=== PATIENT | female | born 1945 | race Caucasian/White ===

== ENCOUNTER 2017-12-01 07:54 | Day surgery (SDC) | payer MEDICARE, BC ==
[~2017-12-01 07:54] MED LIST: Lactated Ringers 1,000 ML IV SCH; Lidocaine 1% 6 ML ONE; Lidocaine 1%/Sod Bicarbonate in NS 8.4% 1 ML Syringe IDERM PRN; Propofol 200 MG/20 ML SDV ONE; Sodium Chloride 0.9% 10 ML Syringe FLUSH PRN; fentaNYL 100 MCG/2 ML SDV ONE
--- NOTE | 2017-12-01 09:17 | PCM.PREANE ---
Preanesthetic Assessment - Procedure Proposed Procedure: Surveillance colonoscopy - Anesthesia/Transfusion/Family Hx Anesthesia History: Prior Anesthesia Without Reaction Family History of Anesthesia Reaction: No Transfusion History: No Prior Transfusion(s) Type of Transfusion Reactions: Reports: Unknown Additional History: CKD - Review of Systems General: No Symptoms Pulmonary: No Symptoms Cardiovascular: Other (HTN, Left CEA 5 years, ) Gastrointestinal: No Symptoms Other: Reports: None, Diabetes (DM2 glucose 192 at 0820) - Physical Assessment NPO Status Date: 11/30/17 NPO Status Time: 22:00 O2 Sat by Pulse Oximetry: 94 Respiratory Rate: 14 Vital Signs: Last Vital Signs Temp 36.4 C 12/01/17 08:27 Pulse 69 12/01/17 08:27 Resp 14 12/01/17 08:27 BP 161/87 H 12/01/17 08:27 Pulse Ox 94 L 12/01/17 08:27 Height: 1.73 m Weight: 102.512 kg ASA Class: 2 Mental Status: Alert & Oriented x3 Airway Class: Mallampati = 2 Dentition: Reports: Normal Dentition Thyro-Mental Finger Breadths: 3 Mouth Opening Finger Breadths: 3 ROM/Head Extension: Full Lungs: Clear to Auscultation, Normal Respiratory Effort Cardiovascular: Regular Rate, Regular Rhythm - Lab Values: Laboratory Last Values Sodium 139 mEq/L (136-145) 12/01/17 08:20 Potassium 3.5 mEq/L (3.5-5.1) 12/01/17 08:20 Chloride 100 mEq/L (98-107) 12/01/17 08:20 Carbon Dioxide 29 mEq/L (21-32) 12/01/17 08:20 Anion Gap 13.5 (5-15) 12/01/17 08:20 BUN 19 mg/dL (7-18) H 12/01/17 08:20 Creatinine 1.3 mg/dL (0.55-1.02) H 12/01/17 08:20 Est Cr Clr Drug Dosing 40.04 mL/min 12/01/17 08:20 Estimated GFR (MDRD) 40 mL/min (>60) 12/01/17 08:20 BUN/Creatinine Ratio 14.6 (14-18) 12/01/17 08:20 Glucose 192 mg/dL (83-115) H 12/01/17 08:20 Calcium 9.3 mg/dL (8.5-10.1) 12/01/17 08:20 - Allergies Allergies/Adverse Reactions: Allergies Allergy/AdvReac Type Severity Reaction Status Date / Time lisinopril Allergy Cannot Verified 11/30/17 12:36 Remember - Blood Blood Available: No Product(s) Available: None - Anesthesia Plan Pre-Op Medication Ordered: None - Acknowledgements Anesthesia Type Planned: MAC Pt an Appropriate Candidate for the Planned Anesthesia: Yes Alternatives and Risks of Anesthesia Discussed w Pt/Guardian: Yes Pt/Guardian Understands and Agrees with Anesthesia Plan: Yes PreAnesthesia Questionnaire HEENT History: Reports: Cataract, Glaucoma, Impaired Vision Cardiovascular History: Reports: CAD, High Cholesterol, Hypertension, Other ( See Below) Other Cardiovascular History: bruit Respiratory History: Reports: SOB Gastrointestinal History: Reports: Colon Polyp, Diverticulosis Genitourinary History: Reports: Other (See Below) Other Genitourinary History: ckd III TAX ATTORNEY History: Reports: None Musculoskeletal History: Reports: Gout, Other (See Below) Other Musculoskeletal History: knee pain, degenerative joint disease Neurological History: Reports: Headaches, Chronic Psychiatric History: Reports: None Endocrine/Metabolic History: Reports: Diabetes, Type II, Obesity/BMI 30+ Hematologic History: Reports: None Immunologic History: Reports: None Oncologic (Cancer) History: Reports: None Dermatologic History: Reports: None - Past Surgical History Head Surgeries/Procedures: Reports: None HEENT Surgical History: Reports: Cataract Surgery Cardiovascular Surgical History: Reports: Carotid Endarterectomy Other Cardiovascular Surgeries/Procedures: angiogram Respiratory Surgical History: Reports: None GI Surgical History: Reports: Colonoscopy Endocrine Surgical History: Reports: None Neurological Surgical History: Reports: None Other Musculoskeletal Surgeries/Procedures:: bilateral knee replacements with revisions Dermatological Surgical History: Reports: None - SUBSTANCE USE Smoking Status *Q: Never Smoker Recreational Drug Use History: No - HOME MEDS Home Medications: Home Meds Acetaminophen [Tylenol] 650 mg PO Q6HR PRN 09/29/16 [History] Allopurinol [Zyloprim] 1 tab PO BID 09/29/16 [History] Ascorbate Calcium [Vitamin C] 1 tab PO BID 09/29/16 [History] Aspirin 1 tab PO BEDTIME 09/29/16 [History] Ca Carbonate/Vitamin D3/Vit K [Calcium + D Soft Chewable Tab] 1 tab PO DAILY [History] Cinnamon Bark [Cinnamon] 1 cap PO DAILY 09/29/16 [History] Flaxseed Oil [Flax Oil] 1 cap PO BID 09/29/16 [History] Gluc 2KCl/Chondr/Liliam Hy/Hy Ac [Glucosamine & Chondroitin Cap] 1 tab PO BID [History] Losartan [Cozaar] 1 tab PO DAILY 09/29/16 [History] Multivit-Min/FA/Lycopene/Lut [Abc Plus Tablet] 1 tab PO DAILY 09/29/16 [History] Bonaparte-3/DHA/Epa/Fish Oil [Bonaparte 3 500 Softgel] 1 tab PO BID 09/29/16 [History] Pyridoxine HCl 100 mg PO DAILY 09/29/16 [History] Rosuvastatin [Crestor] 5 mg PO BEDTIME 09/29/16 [History] Triamterene/Hydrochlorothiazid [Triamterene-HCTZ 37.5-25 MG] 1 tab PO BID [History] Ubidecarenone [Coq-10] 100 mg PO DAILY 09/29/16 [History] Vit C/Landaverde & Celery Ex/Grp E [Tart Landaverde] 1 cap PO DAILY 09/29/16 [History] Vitamin E 200 unit PO DAILY 09/29/16 [History] Zinc [Zinc Lozenge] 25 mg PO DAILY 09/29/16 [History] amLODIPine [Norvasc] 10 mg PO DAILY 09/29/16 [History] metFORMIN HCl [Metformin HCl] 1,000 mg PO BID 09/29/16 [History] Carvedilol 12.5 mg PO BID 11/30/17 [History] SitaGLIPtin [Januvia] 50 mg PO DAILY 11/30/17 [History] - CURRENT (IN HOUSE) MEDS Current Meds: Current Medications Lactated Ringer's (Ringers, Lactated) 1,000 mls @ 125 mls/hr IV ASDIRECTED SINDI Stop: 12/01/17 23:00 Lidocaine/Sodium Bicarbonate (Buffered Lidocaine 1% In Ns 8.4%) 0.25 ml IDERM ONETIME PRN PRN Reason: Prior to IV Start Stop: 12/01/17 18:00 Sodium Chloride (Saline Flush) 10 ml FLUSH ASDIRECTED PRN PRN Reason: Keep Vein Open Stop: 12/01/17 18:00 Discontinued Medications Fentanyl (Sublimaze) Confirm Administered Dose 100 mcg .ROUTE .STK-MED ONE Stop: 12/01/17 06:25 Lidocaine HCl (Xylocaine-Mpf 1%) Confirm Administered Dose 6 mls @ as directed .ROUTE .STK-MED ONE Stop: 12/01/17 06:25 Propofol (Diprivan 20 Ml) Confirm Administered Dose 200 mg .ROUTE .STK-MED ONE Stop: 12/01/17 06:25
[2017-12-01] MEDS ORDERED: Phenylephrine/Normal Saline 100 MCG/ML 10 ML Syringe ONE (10:09)
[2017-12-01] MEDS ORDERED: Simethicone Drops 40 MG/0.6 ML 30 ML Bottle ONE (10:11)
[2017-12-01] MEDS ORDERED: Lactated Ringers 1,000 ML ONE (10:22)
--- NOTE | 2017-12-01 10:35 | PCM48HPAN ---
Post Anesthesia Note - EVALUATION WITHIN 48HRS OF ANESTHETIC Vital Signs in Normal Range: Yes Patient Participated in Evaluation: Yes Respiratory Function Stable: Yes Airway Patent: Yes Cardiovascular Function Stable: Yes Hydration Status Stable: Yes Pain Control Satisfactory: Yes Nausea and Vomiting Control Satisfactory: Yes Mental Status Recovered: Yes
[2017-12-01 10:39] VITALS: BP 145/79
--- NOTE | 2017-12-01 10:56 | PCM.OPNOTE ---
- General Post-Op/Procedure Note Date of Surgery/Procedure: 12/01/17 Operative Procedure(s): colonoscopy with polypectoomy Findings: 3mm hyperplastic appearing rectal polyp at 8cm Pre Op Diagnosis: history of adenomatous polyps Post-Op Diagnosis: Same Anesthesia Technique: DELANEY Primary Surgeon: Navdeep Caldera Anesthesia Provider: Chetna Caro Pathology: rectal polyp Complications: None Condition: Good
--- NOTE | 2017-12-01 16:54 | OR ---
DATE OF OPERATION: 12/01/2017 SURGEON: Navdeep Caldera MD PREOPERATIVE DIAGNOSIS: History of adenomatous polyps. OPERATION PERFORMED: Surveillance colonoscopy. INDICATIONS: This 72-year-old patient had her first colonoscopy about 15 months ago. She had a 1.5 cm polyp in the splenic flexure and additional smaller polyp removed. There is no significant family history of colon cancer. Surveillance colonoscopy is indicated in view of the size of the polyps and the fact that there were 2 adenomatous polyps. DESCRIPTION OF PROCEDURE: The patient was brought to the surgical area. Procedure was done with MAC anesthesia. Appropriate time-out was instituted. She had undergone the usual bowel prep. She was turned in the left lateral decubitus position. Rectal exam was negative. Scope was advanced into the rectosigmoid. Sigmoid was straightened up. I do not see sigmoid diverticula. Scope was advanced past the splenic flexure, and I see no abnormalities of any previous polypectomy or residual polyp. Scope was advanced through the transverse colon and then down to the cecum. We initially go through the ileocecal valve into the ileum and no abnormalities were seen. We were able to retroflex the scope in the cecum and I see no additional polyps in the ascending colon. The quinault's foot and appendiceal orifice were visualized. The prep was good. We then began the retraction process and come through the ascending colon and then across the transverse colon to the descending colon. We get a very good look at the splenic flexure area and I see no evidence of residual polyp. No diverticula are encountered. We then go through the sigmoid, and on retroflexion, there appeared to be a small rectal polyp that was visualized. We then straightened the scope and this polyp was at about 8 cm. It looked hyperplastic. I removed it with the large biopsy forceps and this will be sent for pathology. There was minimal blood loss from this. The scope was then removed. The prep was good. She tolerated the procedure well. RECOMMENDATIONS: Will be to review the pathology. I think she can be scheduled for a surveillance colonoscopy in 5 years. POSTOPERATIVE DIAGNOSIS: ANESTHESIA: ESTIMATED BLOOD LOSS: MMODAL /[id number]
== END 2017-12-01 11:12 | disposition home or self-care (01) ==
LOC: JD.SDS 07:54
PROVIDERS: ATTEND Surgery
DX: K62.1 Rectal polyp (principal); I12.9 Hypertensive chronic kidney disease with stage 1 through stage 4 chronic kidney disease, or unspecified chronic kidney disease; E11.22 Type 2 diabetes mellitus with diabetic chronic kidney disease; N18.3 Chronic kidney disease, stage 3 (moderate); E11.39 Type 2 diabetes mellitus with other diabetic ophthalmic complication; H40.9 Unspecified glaucoma; E66.9 Obesity, unspecified; E78.00 Pure hypercholesterolemia, unspecified; Z86.010 Personal history of colon polyps; Z79.84 Long term (current) use of oral hypoglycemic drugs; Z88.8 Allergy status to other drugs, medicaments and biological substances
CPT/HCPCS: 36415; 45380; 80048; 88305; A9270; J2001; J3010; J7120; 00811; J2704